=== PATIENT | female | born 1970 | race Caucasian/White ===

== ENCOUNTER → 2017-07-14 17:07 | Outpatient (CLI) | payer MEDICAID ==
[2014-03-27 13:13] VITALS: BMI 34.6
[~2017-07-14 17:07] MED LIST: ACCUPRIL10 MG PO; ACCUPRIL5 MG; BACTRIM DS TABL1 TAB PO; CHANTIX 1 MG TAB1 MG PO; CYCLOBENZAPRINE10 MG PO; CYMBALTA60 MG PO; DESERYL100 MG PO; EDARBYCLOR 40-1 EACH PO; HYDROCODONE-APA1 TAB PO; NEURONTIN 300300 MG PO; RESTORIL15 MG PO; RESTORIL7.5 MG PO; SEROQUEL200 MG PO; XANAX1 MG PO
== END | disposition home or self-care (01) ==
LOC: D.MAMMO 16:00
DX: Z12.31 Encounter for screening mammogram for malignant neoplasm of breast (principal)

== ENCOUNTER → 2017-07-27 11:55 | Outpatient (CLI) | payer MEDICAID ==
[~2017-07-27] VITALS: Ht 175.3 cm; Wt 104.5 kg
--- NOTE | ~2017-07-27 | HEMODYNAMI ---
PATIENT:GAYATRI BENITEZ MEDICAL RECORD: [id number] : 66 LOCATION:[facility] ADMISSION DATE: 07/27/17 Generatedon:07/27/201714:28 Patient name: GAYATRI BENITEZ Patient #: [id number] SSN: : 1970 Date of study: 07/27/2017 Page: Of Hemodynamic Procedure Report Patient Data Patient Demographics Procedure consent was obtained First Name: GAYATRI Gender: Female Last Name: EMMANUEL : 1970 Middle Initial: PAKO Age: 46 year(s) Patient #: [id number] Race: Unknown Additional ID: [id number] Contact details [address]: [address] [place] [address] State: [place] City: [place] Zip code: [address] Past Medical History Allergies: No known allergies Admission Admission Data Admission Date: 07/27/2017 Admission Time: 11:55 Procedure Procedure Types Cath Procedure Diagnostic Procedure LHC LHC w/Coronaries Miscellaneous Procedures Moderate Sedation up to 15 minutes Procedure Description Procedure Date Procedure Date: 07/27/2017 Procedure Start Time: 14:17 Procedure End Time: 14:27 Procedure Staff Name Function Pedro Lozoya MD Performing Physician Mariela Hummel RT Monitor Yenny Guerin RT Scrub Zeferino Jack RN Nurse Amber Batres RN Nurse Procedure Data Cath Procedure Fluoroscopy Diagnostic fluoroscopy Total fluoroscopy Time: 1.2 time: 1.2 min min Diagnostic fluoroscopy Total fluoroscopy dose: 508 dose: 508 mGy mGy Contrast Material Contrast Material Type Amount (ml) Isovue 300 49 Entry Location Entry Primary Successful Side Size Upsize Upsize Entry Closure Menendez ccessful Closure Location (Fr) 1 (Fr) 2 (Fr) Remarks Device Remarks Radial Right 6 Fr Manual TR band artery Short Compression Estimated blood loss: 10 ml Diagnostic catheters Device Type Used For End Catheter Placement DIAGNOSTIC Buchanan 110cm 5 Procedure Fr catheter (722132) Procedure Complications No complications Procedure Medications Medication Administration Route Dosage 0.9% NaCl I.V. 100 ml/hr Oxygen NC 2 l/min Heparin Flush Bag added to field 2 bags (1000units/500ml NS) Lidocaine 2% added to field 20 Radial Cocktail added to field 1 syringe (Verapomil 2mg/Nitro 400mcg/Heparin 1500units) Fentanyl I.V. 100 mcg Versed I.V. 2 mg Versed I.V. 2 mg Fentanyl I.V. 100 mcg Hemodynamics Rest Heart Rate: 93 (bpm) Pressure Samples Time Site Value (mmHg) Purpose Heart Use Rate(bpm) 14:19 LV 87/10,10 Snapshot 93 14:20 AO 70/51(61) Pullback 83 14:20 LV 95/6,9 Pullback 83 Gradients Valve Time Site 1 Site 2 Mean SEP/DFP Peak To Heart Use (mmHg) (sec/min) Peak Rate (mmHg) (bpm) Aortic 14:20 LV AO 17 19 25 83 95/6,9 70/51(61) Calculations Valve P-P Mean Valve Index Valve Source Name Gradient Area Flow (cm2) Aortic 25 17 25 17 Snapshots Pre Cath Intra NCS Post Cath Vital Signs Time Heart Resp SPO2 etCO2 NIBP Rhythm Pain Sedation Rate (ipm) (%) (mmHg) (mmHg) Status Level (bpm) 14:00:06 92 25 99 37.3 108/77(88) NSR 0 (11) 10(A) , No pain 14:04:43 89 14 99 37.3 114/76(88) NSR 0 (11) 10(A) , No pain 14:08:52 89 22 99 36.5 110/69(82) NSR 0 (11) 10(A) , No pain 14:12:54 91 16 98 38 101/70(81) NSR 0 (11) 10(A) , No pain 14:17:00 91 23 97 35 101/64(79) NSR 0 (11) 9(A) , No pain 14:21:06 93 21 99 38 82/52(67) NSR 0 (11) 10(A) , No pain 14:26:05 93 15 41.8 Measuring NSR 0 (11) 10(A) , No pain 14:26:15 91 20 45.5 Disturbed NSR 0 (11) 10(A) , No pain Medications Time Medication Route Dose Verified Delivered Reason Notes Effectiveness by by 13:59:24 0.9% NaCl I.V. 100 Pedro Clark used for ml/hr [facility] Hardeep Batres RN procedure 13:59:34 Oxygen NC 2 l/min Pedro Clark Per [facility] Hardeep Batres RN physician 14:00:01 Heparin Flush added 2 bags Pedro Vasquez used for Bag to [facility] procedure (1000units/500ml field MD BROWN NS) 14:00:16 Lidocaine 2% added 20ml Pedro Vasquez for local to vial [facility] anesthetic field MD BROWN 14:06:03 Radial Cocktail added 1 Pedro Vasquez for (Verapomil to syringe [facility] vasodilation 2mg/Nitro field MD BROWN 400mcg/Heparin 1500units) 14:16:13 Fentanyl I.V. 100 mcg Pedro Clark for sedation [facility] Hardeep Batres RN, MD 14:16:22 Versed I.V. 2 mg Pedro Clark for sedation [facility] Hardeep Batres RN, MD 14:22:22 Versed I.V. 2 mg Pedro Clark for sedation [facility]. Hardeep Batres RN, MD 14:22:29 Fentanyl I.V. 100 mcg Pedro Clark for sedation [facility]. Hardeep Batres RN, MD Procedure Log Time Note 13:51:57 Diagnostic Cath Status : Elective 13:52:23 Zeferino Jack RN sent for patient. Start room use. 13:52:24 Time tracking: Regular hours 13:52:28 Plan of Care:Hemodynamics will remain stable., Cardiac rhythm will remain stable., Comfort level will be maintained., Respiratory function will remain adequate., Patient/ family verbilizes understanding of procedure., Procedure tolerated without complication., Recovers from procedure without complications.. 13:52:40 Patient received from Pre/Post Procedure Room to [facility] 2 Alert and oriented. Tansferred to table in Supine position. 13:52:42 Warm blankets applied, and jose alberto hugger turned on for patient comfort. 13:52:43 Correct patient and procedure confirmed by team. 13:52:45 Signed procedure consent form obtained from patient. 13:52:47 ECG and BP/O2 sat monitors applied to patient. 13:59:08 Vital chart was started 13:59:24 0.9% NaCl 100 ml/hr I.V. was administered by Amber Batres RN; used for procedure; 13:59:34 Oxygen 2 l/min NC was administered by Amber Batres RN; Per physician; 14:00:01 Heparin Flush Bag (1000units/500ml NS) 2 bags added to field was administered by Pedro Lozoya MD; used for procedure; 14:00:16 Lidocaine 2% 20ml vial added to field was administered by Pedro Lozoya MD; for local anesthetic; 14:02:32 Baseline sample Acquired. 14:02:38 Rhythm: sinus rhythm 14:02:39 Full Disclosure recording started 14:03:10 H&P Date Dictated: 07/13/2017 Within 30 days and on chart., H&P Addendum completed by physician on day of procedure. (MUST COMPLETE FOR ALL OUTPATIENTS). 14:03:14 Pre-procedure instructions explained to patient. 14:03:18 Pre-op teaching completed and patient verbalized understanding. 14:03:22 Family in waiting room. 14:03:24 Patient NPO since Midnight. 14:03:35 Patient allergic to No known allergies 14:03:50 Is the patient allergic to Iodine/contrast media? No. 14:03:52 Is patient on blood thinner?No 14:04:00 Patient diabetic? No. 14:04:06 Snore? Yes 14:04:07 Sleep apnea? No 14:04:15 Patient pain scale 0/10 ?. 14:04:23 IV patent on arrival in left forearm with 0.9% NaCl at KVO. 14:06:03 Radial Cocktail (Verapomil 2mg/Nitro 400mcg/Heparin 1500units) 1 syringe added to field was administered by Pedro Lozoya MD; for vasodilation; 14:06:38 Lab results completed and on chart. 14:06:42 Right Radial & Right Groin area was prepped with chlora-prep and draped in sterile fashion 14:06:43 Alarms reviewed by Symone Davis 14:07:05 Physician paged 14:07:06 Physician arrived 14:09:13 --------ALL STOP TIME OUT------ 14:09:14 Final Timeout: patient, procedure, and site verified with staff and physician. All members of the team are in agreement. 14:09:16 Right Radial & Right Groin site verified by team. 14:09:20 Physical assessment completed. ASA score P 2 - A patient with mild systemic disease as per Pedro Lozoya MD. 14:09:26 Sedation plan: IV Moderate Sedation Medication:Versed, Fentanyl 14:11:58 Use device set Radial Dx 14:13:32 Zero performed for pressure channel P1 14:13:51 ACIST Syringe (20364) opened to sterile field. 14:13:51 Medline Cath Pack ([id number]) opened to sterile field. 14:13:52 Bag Decanter (2002S) opened to sterile field. 14:13:52 SHEATH 6FR Slender ([id number]) opened to sterile field. 14:13:53 DIAGNOSTIC WIRE .035 260cm J wire (516514) opened to sterile field. 14:13:53 ACIST Hand Control (34341) opened to sterile field. 14:13:53 ACIST Manifold (15582) opened to sterile field. 14:13:57 MBrace Wrist Support ([id number]) opened to sterile field. 14:14:03 TR BAND Standard ([id number]) opened to sterile field. 14:16:09 Procedure started. 14:16:13 Fentanyl 100 mcg I.V. was administered by Amber Batres RN; for sedation; 14:16:22 Versed 2 mg I.V. was administered by Amber Batres RN; for sedation; 14:17:01 Local anesthetic to right femoral artery with Lidocaine 2% by Pedro Lozoya MD.INITIAL ACCESS ONLY 14:17:16 A 6 Fr Short sheath was inserted into the Right Radial artery 14:19:16 A DIAGNOSTIC Buchanan 110cm 5 Fr catheter (236006) was advanced over the wire and used for Procedure. 14:20:31 LV angiography performed. 14:20:34 LV gram done using RED 14:20:44 EF : 55 % 14:20:59 LCA angiography performed. 14:21:58 RCA angiography performed. 14:22:22 Versed 2 mg I.V. was administered by Amber Batres RN; for sedation; 14:22:29 Fentanyl 100 mcg I.V. was administered by Amber Batres RN; for sedation; 14:22:35 Catheter removed. 14:24:24 Sheath removed intact; hemostasis achieved with Manual Compression to the Right Radial artery. 14:24:27 Procedure ended.(Physican Out) 14:24:38 Fluoroscopy time 01.20 minutes. 14:24:42 Fluoroscopy dose: 508 mGy 14:24:42 Flurop Dose total: 508 14:24:46 Contrast amount:Isovue 300 49ml. 14:24:48 Sharps counted by scrub and verified by R.N. 14:26:30 TR band inflated with 10cc of air. 14:26:33 Insertion/operative site no bleeding no hematoma. 14:26:35 Post Procedure Pulses reassessed and unchanged 14:26:39 Post-procedure physical assessment completed. ASA score P 2 - A patient with mild systemic disease as per Pedro Lozoya MD. 14:26:43 Post procedure rhythm: unchanged. 14:26:47 Estimated blood loss: 10 ml 14:26:49 Post procedure instruction explained to patient.Patient verbalizes understanding. 14:27:04 Procedure type changed to Cath procedure, Diagnostic procedure, LHC, LHC w/Coronaries, Miscellaneous Procedures, Moderate Sedation up to 15 minutes 14:27:05 Procedure and supply charges have been captured, reviewed, submitted and are correct. 14:27:43 Procedure Complication : No complications 14:27:45 Vital chart was stopped 14:27:46 See physician's report for complete and final results. 14:27:49 Report given to Pre/Post Procedure Room. 14:27:52 Patient transfered to Pre/Post Procedure Room with Stretcher. 14:27:54 Procedure ended. 14:27:54 Full Disclosure recording stopped 14:28:03 End room use (Document Last) Device Usage Item Name Manufacture Quantity Catalog Hospital Part Current Minima l Lot# / Number Charge Number Stock Stock Serial# Code ACIST Acist 1 93308 368340 385051 497321 20 Syringe Atbrox (42183) Systems Inc Medline Cath Cardinal 1 [id number] 367954 32009 500204 5 Pack Health ([id number]) Bag Decanter Microtek 1 2001S 168164 07108 407286 5 () Medical Inc. SHEATH 6FR Terumo 1 [id number] 745560 333889 358679 40 Slender ([id number]) DIAGNOSTIC [place] 1 654744 233389 945993 830756 30 WIRE .035 260cm J wire (893471) ACIST Hand Acist 1 80795 297068 881313 236685 5 Control Medical (21047) Systems Inc ACIST Acist 1 13123 012519 147237 623226 5 Manifold Medical (65653) Systems Inc MBrace Wrist Advanced 1 140-0250-00 770582 01626 662921 5 Support Vascular (350140642) Dynamics TR BAND Terumo 1 [id number] 123639 693100 435689 40 Standard ([id number]) DIAGNOSTIC Terumo 1 40-3024 705838 859482 935393 5 Buchanan 110cm 5 Fr catheter (825015) Signature Audit [place] Stage Time Signature Unsigned Intra-Procedure 07/27/2017 Mariela Hummel 2:28:33 PM RT(R) Signatures Monitor : Mariela Hummel Signature : RT Date : Time : [id number] [place] [address]
[2017-07-27 12:30] VITALS: BP 99/70; Ht 175.3 cm; Wt 104.5 kg
[2017-07-27 12:46] LABS: BASOPHILS 0.4 % (0-2); EOSINOPHILS 1.3 % (0-7); HEMATOCRIT 45.7 % (36.0-48.0); HEMOGLOBIN 16.2 g/dL (12-16); IMMATURE GRANULOCYTES 0.1 % (0-5); MCH 31.9 pg (26.0-34.0); MCHC 35.4 g/dL (31.0-37.0); MONOCYTES 7.7 % (2-11); NEUTROPHILS 45.5 % (40-80); RBC 5.08 10x6/uL (4.00-5.40); RDW 12.3 % (11.5-14.5); WBC 7.7 10x3/uL (4.8-10.8)
[2017-07-27 12:48] LABS: PLATELET COUNT 238 10x3/uL (130-400)
[2017-07-27 13:02] LABS: CALC OSMOLALITY 273 mosm/kg (275-300); CALCIUM 9.5 mg/dL (8.5-10.1); CARBON DIOXIDE 25.7 mmol/L (21.0-32.0); CHLORIDE - SERUM 100 mmol/L (98-107); CREATININE - SERUM 0.6 mg/dL (0.6-1.3); GLUCOSE 116 mg/dL (74-106); POTASSIUM - SERUM 4.4 mmol/L (3.5-5.1); SODIUM 136 mmol/L (136-145); UREA NITROGEN 15 mg/dL (7-18); eGFR NON AFRICAN AMERICAN > 90 mL/min (90-120)
--- NOTE | 2017-07-27 14:46 | NUR ---
RECIEVED TO ROOM VIA STRETCHER FROM ALCOHOL RUBBER WITH TR BAND TO R/WRIST CDI NO BLEEDING NO HEMATOMA NOTED. CHEST PAIN IS DENIED
--- NOTE | 2017-07-27 15:12 | NUR ---
PATIENT NON COMPLIANT WITH BP CUFF OFF AND PULLED IV OUT VERBALIZED I DO NOT NEED THAT.
--- NOTE | 2017-07-27 16:13 | NUR ---
4 CC AIR REMOVED FROM TR BAND WITH NO BLEEDING NO HEMATOMA NOTED. VSS WITH CHEST PAIN DENIED
--- NOTE | 2017-07-27 16:19 | NUR ---
4 CC AIR REMOVED FROM TR BAND WITH NO BLEEDING NO HEMATOMA NOTED
--- NOTE | 2017-07-27 16:47 | NUR ---
TR BAND REMOVED WITH DRESSING APPLIED NO BLEEDING NO HEMATOMA NOTED. VERBAL AND WRITTEN DISCHARGE GONE OVER WITH FAMILY AND PATIENT ALL VERBALIZED UNDERSTANDING. LEFT VIA WC TO PARKING FOR TRANSPORT HOME NO DISTRESS
--- NOTE | 2017-07-29 13:23 | OP ---
PATIENT NAME: GAYATRI EBNITEZ MEDICAL RECORD: [id number] :66 LOCATION:[facility] ADMISSION DATE: SURGEON: JUAN CANDELARIA MD DATE OF OPERATION: 07/27/2017 PROCEDURE: Left heart catheterization, selective coronary angiography, radial sheath. CATHETERS: [place] catheter. The procedure was well tolerated and the patient returned to the ruelas, sheath removed, and TR band was placed. FINDINGS: Left ventriculography in the 30-degree RED view: Normal wall motion, normal systolic function. CORONARY ANATOMY: 1. Left main: Left main is free of disease. 2. LAD is free of disease in the diagonal system. 3. Circumflex is free of disease in the marginal system. 4. Right coronary artery, dominant artery, gives rise to PDA, free of disease. IMPRESSION: Normal systolic function, normal coronary anatomy, false positive nuclear stress testing. TRANSINT:[id number] Voice Confirmation ID: [id number] DOCUMENT ID: [id number] JUAN CANDELARIA MD at 1323 CC: [id number] DICTATION DATE: 07/27/17 1433 SCHOOL PSYCHOLOGIST: 07/27/17 1514 DEP CLI 07/27/17 [id number] [place] [address]
== END | disposition home or self-care (01) ==
LOC: D.CATH 11:55
PROVIDERS: Internal Medicine Interventional Cardiology
DX: R94.39 Abnormal result of other cardiovascular function study (principal); Z01.812 Encounter for preprocedural laboratory examination

== ENCOUNTER → 2018-03-04 08:39 | Outpatient (CLI) | payer MEDICAID ==
[2017-07-27 12:30] VITALS: BMI 34.0
== END | disposition home or self-care (01) ==
LOC: D.CT 08:00
DX: N28.89 Other specified disorders of kidney and ureter (principal)